=== PATIENT | male | born 1980 | race Caucasian/White ===

== ENCOUNTER 2018-08-27 19:29 | Emergency (ER) | payer BC, OTHER ==
--- NOTE | 2018-08-27 19:50 | ER Document Report ---
ED Medical Screen (RME) - General Chief Complaint: Chest Congestion Stated Complaint: COUGHING,RUNNY NOSE Time Seen by Provider: 08/27/18 19:40 Notes: 38-year-old male to the emergency department for evaluation of cough, shortness of breath and chest pain. Patient states he generally feels completely wiped out. States that he was diagnosed at his primary care doctor with a early pneumonia and was started on 750 mg of Levaquin which she completed a whole course of the. After finishing the last dose of the Levaquin the symptoms came back. Also complaining of some pain in the left lower quadrant. I have greeted and performed a rapid initial assessment of this patient. A comprehensive ED assessment and evaluation of the patient, analysis of test results and completion of the medical decision making process will be conducted by additional ED providers. TRAVEL OUTSIDE OF THE [place] IN LAST 30 DAYS: No - Related Data Allergies/Adverse Reactions: No Known Allergies Allergy (Verified 03/04/16 14:25) Past Medical History - Social History Chew tobacco use (# tins/day): No Frequency of alcohol use: None Drug Abuse: Bath salts - Past Medical History Cardiac Medical History: Reports: Hx Hypertension Denies: Hx Coronary Artery Disease, Hx Heart Attack Pulmonary Medical History: Denies: Hx Asthma, Hx Bronchitis, Hx COPD, Hx Pneumonia Neurological Medical History: Denies: Hx Cerebrovascular Accident, Hx Seizures Renal/ Medical History: Denies: Hx Peritoneal Dialysis Musculoskeltal Medical History: Reports Hx Arthritis Past Surgical History: Reports: Hx Orthopedic Surgery - right hand surgery - Immunizations Hx Diphtheria, Pertussis, Tetanus Vaccination: Yes Review of Systems - Review of Systems Notes: Review of systems positive for the following: Shortness of breath, cough, chest pain, wheezing, malaise and left lower quadrant pain Physical Exam - Vital signs Vitals: Temp Pulse Resp BP Pulse Ox 98.2 F 77 20 148/81 H 94 08/27/18 19:34 08/27/18 19:34 08/27/18 19:34 08/27/18 19:34 08/27/18 19:34 Interpretation: Normal - Respiratory Respiratory status: No respiratory distress Chest status: Nontender Breath sounds: Nonproductive cough, Rhonchi, Wheezing Chest palpation: Normal - Cardiovascular Rhythm: Regular Heart sounds: Normal auscultation Murmur: No Course - Vital Signs Vital signs: Temp Pulse Resp BP Pulse Ox 98.2 F 77 20 148/81 H 94 08/27/18 19:34 08/27/18 19:34 08/27/18 19:34 08/27/18 19:34 08/27/18 19:34 Doctor's Discharge - Discharge Referrals: SABINA ZAPIEN MD [Primary Care Provider] - Follow up as needed
[2018-08-27] MEDS ORDERED: ALBUTEROL SULFATE 0.083% NEB 2.5 MG/3 ML AMPUL NEB ONE ×2 (19:51→21:54)
[2018-08-27 20:18] LABS: ABSOLUTE BASOPHILS # (AUTO) 0.1 10^3/uL (0.0-0.2); ABSOLUTE LYMPHOCYTES (AUTO) 2.3 10^3/uL (0.5-4.7); ABSOLUTE MONOCYTES (AUTO) 0.6 10^3/uL (0.1-1.4); ABSOLUTE NEUT (AUTO) 8.7 10^3/uL (1.7-8.2); BASOPHILS % (AUTO) 0.4 % (0-2); EOSINOPHILS % (AUTO) 0.3 % (0-6); HEMOGLOBIN 17.9 g/dL (13.5-17.0); LYMPHOCYTES % (AUTO) 19.8 % (13-45); MEAN CORPUSCULAR HEMOGLOBIN 29.7 pg (27.0-33.4); MEAN CORPUSCULAR HGB CONC 33.8 g/dL (32.0-36.0); MEAN CORPUSCULAR VOLUME 88 fl (80-97); MONOCYTES % (AUTO) 5.4 % (3-13); RED BLOOD COUNT 6.02 10^6/uL (4.35-5.55); RED CELL DISTRIBUTION WIDTH 14.1 % (11.5-14.0); SEGMENTED NEUTROPHILS % (AUTO) 74.1 % (42-78); TOTAL CELLS COUNTED % (AUTO) 100 %; WHITE BLOOD COUNT 11.7 10^3/uL (4.0-10.5)
--- NOTE | 2018-08-27 20:30 | RADIOLOGY REPORT (SQ) ---
EXAM DESCRIPTION: CHEST 2 VIEWS COMPLETED DATE/TIME: 08/27/2018 8:21 pm REASON FOR STUDY: cough COMPARISON: None. EXAM PARAMETERS: NUMBER OF VIEWS: two views TECHNIQUE: Digital Frontal and Lateral radiographic views of the chest acquired. RADIATION DOSE: NA LIMITATIONS: none FINDINGS: LUNGS AND PLEURA: No opacities, masses or pneumothorax. No pleural effusion. MEDIASTINUM AND HILAR STRUCTURES: No masses or contour abnormalities. HEART AND VASCULAR STRUCTURES: Heart normal size. No evidence for failure. BONES: No acute findings. HARDWARE: None in the chest. OTHER: No other significant finding. IMPRESSION: NO ACUTE RADIOGRAPHIC FINDING IN THE CHEST. TECHNICAL DOCUMENTATION: JOB ID: [id number] [employer]- All Rights Reserved Reading location - IP/workstation name: [email or web address]
[2018-08-27 20:33] LABS: ALANINE AMINOTRANSFERASE 49 U/L (21-72); ALBUMIN 4.3 g/dL (3.5-5.0); ALKALINE PHOSPHATASE 85 U/L (38-126); ANION GAP 10 (5-19); ASPARTATE AMINO TRANSFERASE 25 U/L (17-59); BILIRUBIN,DIRECT 0.4 mg/dL (0.0-0.4); BILIRUBIN,TOTAL 1.1 mg/dL (0.2-1.3); BLOOD UREA NITROGEN 11 mg/dL (7-20); CALCIUM 9.5 mg/dL (8.4-10.2); CARBON DIOXIDE 24 mmol/L (22-30); CHLORIDE 105 mmol/L (98-107); GLUCOSE 113 mg/dL (75-110); SODIUM 138.8 mmol/L (137-145); TOTAL PROTEIN 6.9 g/dL (6.3-8.2)
[2018-08-27 20:42] LABS: PLATELET COUNT 91 10^3/uL (150-450)
[2018-08-27] MEDS ORDERED: IPRATROPIUM/ALBUTEROL 0.5-2.5 MG/3 ML AMPUL NEB ONE (20:43)
[2018-08-27 20:45] LABS: NT PRO BNP 47 pg/mL (<125); TROPONIN I < 0.012 ng/mL
[2018-08-27 21:14] LABS: A TYPE INFLUENZA AG NEGATIVE (NEGATIVE); B INFLUENZA AG NEGATIVE (NEGATIVE)
[2018-08-27] MEDS ORDERED: PREDNISONE 20 MG TABLET PO ONE (21:54)
--- NOTE | 2018-08-27 21:55 | ER Document Report ---
ED Respiratory Problem - General Chief Complaint: Chest Congestion Stated Complaint: COUGHING,RUNNY NOSE Time Seen by Provider: 08/27/18 19:40 Mode of Arrival: Ambulatory Information source: Patient Notes: Patient presents complaining of persistent cough for the past 3-4 weeks. Patient reports cough has been productive and worse over the past few days. Patient denies any fever but does report occasional sweats and chills. Patient was recently on Levaquin and finish the antibiotic 4 days ago. Patient does smoke a pack of cigarettes a day. Patient denies any recent bedrest immobilizat ion or travel. No previous history of PE or DVT. Patient denies any history of asthma or COPD. Patient does complain of chest discomfort with coughing and left lower abdominal pain with cough or with lateral rotation of the trunk. Patient presently denies any chest discomfort or abdominal pain. Patient denies any nausea vomiting or diarrhea. TRAVEL OUTSIDE OF THE [place] IN LAST 30 DAYS: No - HPI Patient complains to provider of: Cough, Short of breath. No: Asthma, Chest pain Pain Level: Denies Context: Smoker. denies: Hx asthma, Hx COPD, Recent immobilization, Recent surgery At home treatment: Bronchodilators Associated symptoms: Chest pain/discomfort - With coughing, Congestion, Cough, Runny nose, Short of breath, Wheezing. 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 Lives with: Family Family History: Reviewed & Not Pertinent Patient has suicidal ideation: No Patient has homicidal ideation: No Pulmonary Medical History: Denies: Hx Asthma, Hx Bronchitis, Hx COPD, Hx Pneumonia Neurological Medical History: Denies: Hx Cerebrovascular Accident, Hx Seizures Renal/ Medical History: Denies: Hx Peritoneal Dialysis Musculoskeletal Medical History: Reports Hx Arthritis Psychiatric Medical History: Reports: Hx Anxiety, Hx Depression Past Surgical History: Reports: Hx Orthopedic Surgery - right hand surgery - Immunizations Hx Diphtheria, Pertussis, Tetanus Vaccination: Yes Review of Systems - Review of Systems Constitutional: Chills. denies: Fever EENT: Nose congestion, Nose discharge, Sinus pressure Cardiovascular: Chest pain - With coughing Respiratory: Cough, Short of breath, Wheezing Gastrointestinal: Abdominal pain - Movement and cough. denies: Diarrhea, Nausea, Vomiting Genitourinary: No symptoms reported. denies: Dysuria Male Genitourinary: No symptoms reported Musculoskeletal: No symptoms reported. denies: Back pain, Neck pain Skin: No symptoms reported Hematologic/Lymphatic: No symptoms reported Physical Exam - Vital signs Vitals: Temp Pulse Resp BP Pulse Ox 98.2 F 77 20 148/81 H 94 08/27/18 19:34 08/27/18 19:34 08/27/18 19:34 08/27/18 19:34 08/27/18 19:34 - General General appearance: Alert In distress: None - HEENT Head: Normocephalic, Atraumatic Eyes: Normal Conjunctiva: Normal Nasal: Swelling, Clear rhinorrhea Mouth/Lips: Normal Mucous membranes: Normal Pharynx: Erythema Neck: Normal, Supple. No: Lymphadenopathy - Respiratory Respiratory status: No respiratory distress Chest status: Pain with cough Breath sounds: Nonproductive cough, Wheezing Chest palpation: Normal. No: Tender - Cardiovascular Rhythm: Regular. No: Tachycardia Heart sounds: S1 appreciated, S2 appreciated - Abdominal Inspection: Morbidly Obese Distension: No distension Bowel sounds: Normal Tenderness: Nontender Organomegaly: No organomegaly - Back Back: Normal, Nontender. No: CVA tenderness - Extremities General upper extremity: Normal inspection, Normal strength General lower extremity: Normal inspection, Normal strength. No: Edema - Neurological Neuro grossly intact: Yes Cognition: Normal [place] Coma Scale Eye Opening: Spontaneous [place] Coma Scale Verbal: Oriented [place] Coma Scale Motor: Obeys Commands Nathan Coma Scale Total: 15 - Psychological Associated symptoms: Normal affect, Normal mood - Skin Skin Temperature: Warm Skin Moisture: Dry Skin Color: Normal Course - Re-evaluation Re-evalutation: 08/27/18 21:55 Patient continues with diffuse wheezing bilaterally. Additional nebulizer treatment ordered. Chest x-ray reviewed, no concern for pneumonia. Influenza test negative at this time. Patient denies any abdominal pain or chest pain at this time. Patient states he only has abdominal pain whenever he turns or coughs and states he only has chest pain with coughing. 08/27/18 22:36 Patient is requesting to be discharged at this time. Respirations even unlabo red. Patient does have continued scattered wheezing. Patient does have a nebulizer at home with medication for his nebulizer machine. Discussed with patient at length importance of smoking cessation. Patient encouraged to recheck with his primary doctor. Patient continues without any chest pain or abdominal pain at this time. Patient with a heart score of 1 for risk factors. Low probability with well's criteria, no concern for PE at this time. Suspect that abdominal and chest pain are chest and abdominal wall tenderness from coughing. - Vital Signs Vital signs: Temp Pulse Resp BP Pulse Ox 97.5 F 98 22 H 126/74 H 95 08/27/18 22:42 08/27/18 22:42 08/27/18 22:42 08/27/18 22:42 08/27/18 22:42 - Laboratory Result Diagrams: 08/27/18 20:00 08/27/18 20:00 Laboratory results interpreted by me: 08/27/18 08/27/18 20:00 20:00 WBC 11.7 H RBC 6.02 H Hgb 17.9 H Hct 53.0 H RDW 14.1 H Plt Count 91 L Absolute Neutrophils 8.7 H Glucose 113 H 08/27/18 21:55 Labs- Entire Visit 08/27/18 08/27/18 08/27/18 20:00 20:00 20:00 WBC 11.7 H RBC 6.02 H Hgb 17.9 H Hct 53.0 H MCV 88 MCH 29.7 MCHC 33.8 RDW 14.1 H Plt Count 91 L Seg Neutrophils % 74.1 Lymphocytes % 19.8 Monocytes % 5.4 Eosinophils % 0.3 Basophils % 0.4 Absolute Neutrophils 8.7 H Absolute Lymphocytes 2.3 Absolute Monocytes 0.6 Absolute Eosinophils 0.0 Absolute Basophils 0.1 Sodium 138.8 Potassium 4.0 Chloride 105 Carbon Dioxide 24 Anion Gap 10 BUN 11 Creatinine 0.81 Est GFR ( Amer) > 60 Est GFR (Non-Af Amer) > 60 Glucose 113 H Calcium 9.5 Total Bilirubin 1.1 Direct Bilirubin 0.4 Neonat Total Bilirubin Not Reportable Neonat Direct Bilirubin Not Reportable Neonat Indirect Bili Not Reportable AST 25 ALT 49 Alkaline Phosphatase 85 Troponin I < 0.012 NT-Pro-B Natriuret Pep 47 Total Protein 6.9 Albumin 4.3 Influenza A (Rapid) Influenza B (Rapid) 08/27/18 20:51 WBC RBC Hgb Hct MCV MCH MCHC RDW Plt Count Seg Neutrophils % Lymphocytes % Monocytes % Eosinophils % Basophils % Absolute Neutrophils Absolute Lymphocytes Absolute Monocytes Absolute Eosinophils Absolute Basophils Sodium Potassium Chloride Carbon Dioxide Anion Gap BUN Creatinine Est GFR ( Amer) Est GFR (Non-Af Amer) Glucose Calcium Total Bilirubin Direct Bilirubin Neonat Total Bilirubin Neonat Direct Bilirubin Neonat Indirect Bili AST ALT Alkaline Phosphatase Troponin I NT-Pro-B Natriuret Pep Total Protein Albumin Influenza A (Rapid) NEGATIVE Influenza B (Rapid) NEGATIVE - Diagnostic Test Radiology reviewed: Image reviewed, Reports reviewed Discharge - Discharge Clinical Impression: Bronchitis, Wheezing, Pleuritic chest pain Condition: Stable Disposition: HOME, SELF-CARE Instructions: Bronchitis With Bronchospasm (Wheezing) ([facility]), Inhaled Bronchodilators ([facility]), Steroid Medication Additional Instructions: Return immediately for any new or worsening symptoms Followup with your primary care provider, call tomorrow to make a followup appointment Prescriptions: Dextromethorphan Polistirex [Delsym] 60 mg PO Q12 PRN #120 ml PRN Reason: Prednisone [Deltasone 20 mg Tablet] 3 tab PO DAILY 5 Days tablet Forms: Smoking Cessation Education, Return to Work Referrals: SABINA ZAPIEN MD [Primary Care Provider] - Follow up tomorrow
[2018-08-27 22:47] VITALS: BP 126/74
--- NOTE | 2018-08-27 23:46 | EKG REPORT ---
SEVERITY:- BORDERLINE ECG - SINUS RHYTHM BORDERLINE R WAVE PROGRESSION, ANTERIOR LEADS : Confirmed by: Sam Booker 27-Aug-2018 23:46:15
== END 2018-08-27 22:53 | disposition home or self-care (01) ==
LOC: ER 19:29
DX: J40 Bronchitis, not specified as acute or chronic (principal); R06.2 Wheezing; R07.81 Pleurodynia; E66.01 Morbid (severe) obesity due to excess calories; F17.200 Nicotine dependence, unspecified, uncomplicated
CPT/HCPCS: 93005; 94640 ×2; 99284; 36415; 85025; 80053; 84484; 87804; 83880; 71046; 93010; J7512; J7620

== ENCOUNTER 2019-08-29 15:47 | Emergency (ER) | payer OTHER ==
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
[2019-08-29 16:57] LABS: ABSOLUTE EOSINOPHILS # (AUTO) 0.1 10^3/uL (0.0-0.6); ABSOLUTE LYMPHOCYTES (AUTO) 2.3 10^3/uL (0.5-4.7); ABSOLUTE MONOCYTES (AUTO) 0.6 10^3/uL (0.1-1.4); ABSOLUTE NEUT (AUTO) 5.7 10^3/uL (1.7-8.2); BASOPHILS % (AUTO) 0.2 % (0-2); EOSINOPHILS % (AUTO) 1.6 % (0-6); HEMATOCRIT 45.1 % (37.9-51.0); HEMOGLOBIN 15.2 g/dL (13.5-17.0); LYMPHOCYTES % (AUTO) 25.9 % (13-45); MEAN CORPUSCULAR HEMOGLOBIN 29.1 pg (27.0-33.4); MEAN CORPUSCULAR HGB CONC 33.8 g/dL (32.0-36.0); MEAN CORPUSCULAR VOLUME 86 fl (80-97); MONOCYTES % (AUTO) 7.1 % (3-13); PLATELET COUNT 116 10^3/uL (150-450); RED BLOOD COUNT 5.24 10^6/uL (4.35-5.55); RED CELL DISTRIBUTION WIDTH 13.8 % (11.5-14.0); SEGMENTED NEUTROPHILS % (AUTO) 65.2 % (42-78); TOTAL CELLS COUNTED % (AUTO) 100 %; WHITE BLOOD COUNT 8.7 10^3/uL (4.0-10.5)
[2019-08-29 17:03] LABS: APPEARANCE,URINE CLEAR; BILIRUBIN,URINE NEGATIVE (NEGATIVE); COLOR,URINE YELLOW; GLUCOSE, URINE NEGATIVE (NEGATIVE); KETONES,URINE NEGATIVE (NEGATIVE); PROTEIN,URINE NEGATIVE (NEGATIVE); URINE SPECIFIC GRAVITY 1.056; UROBILINOGEN,URINE NEGATIVE mg/dL (<2.0)
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
[2019-08-29 17:29] LABS: ALKALINE PHOSPHATASE 65 U/L (38-126); ANION GAP 9 (5-19); ASPARTATE AMINO TRANSFERASE 26 U/L (17-59); BILIRUBIN,DIRECT 0.2 mg/dL (0.0-0.4); BILIRUBIN,TOTAL 0.6 mg/dL (0.2-1.3); BLOOD UREA NITROGEN 14 mg/dL (7-20); CALCIUM 8.7 mg/dL (8.4-10.2); CARBON DIOXIDE 24 mmol/L (22-30); CHLORIDE 107 mmol/L (98-107); GLUCOSE 111 mg/dL (75-110); POTASSIUM 4.6 mmol/L (3.6-5.0); TOTAL PROTEIN 6.8 g/dL (6.3-8.2)
[2019-08-29 19:56] VITALS: BP 134/79
== END 2019-08-29 19:06 | disposition home or self-care (01) ==
LOC: ER 15:47
DX: S39.91XA Unspecified injury of abdomen, initial encounter (principal); S39.012A Strain of muscle, fascia and tendon of lower back, initial encounter; M54.2 Cervicalgia; X58.XXXA Exposure to other specified factors, initial encounter; I10 Essential (primary) hypertension
CPT/HCPCS: 36415; 74177; 80053; 81001; 85025; 99284

== ENCOUNTER 2020-08-24 11:57 | Emergency (ER) | payer OTHER ==
[2020-08-24] MEDS ORDERED: IPRATROPIUM/ALBUTEROL 0.5-2.5 MG/3 ML AMPUL NEB ONE (13:18)
--- NOTE | 2020-08-24 13:20 | ER Document Report ---
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 Took Tylenol with minimal relief. Was prescribed steroids and nebulizers earlier this week but has not taken them for today. He denies any chest pain, no nausea, no vomiting. states she has been monitoring his oxygen levels at home and it was at 90% this morning. PE: Alert and oriented x3. Lungs diminished without rales, rhonchi, or wheezes. Heart: Regular rate rhythm without murmurs, rubs, gallops. I have greeted and performed a rapid initial assessment of this patient. A comprehensive ED assessment and evaluation of the patient, analysis of test results and completion of the medical decision making process will be conducted by additional ED providers. I have specifically instructed the patient or family members with the patient to immediately return to any nursing staff should anything change in the patient's condition or with their chief complaint. TRAVEL OUTSIDE OF THE [place] IN LAST 30 DAYS: No - Related Data Allergies/Adverse Reactions: No Known Allergies Allergy (Verified 08/29/19 15:57) Past Medical History - Past Medical History Cardiac Medical History: Reports: Hx Hypertension Denies: Hx Coronary Artery Disease, Hx Heart Attack Pulmonary Medical History: Denies: Hx Asthma, Hx Bronchitis, Hx COPD, Hx Pneumonia Neurological Medical History: Denies: Hx Cerebrovascular Accident, Hx Seizures Renal/ Medical History: Denies: Hx Peritoneal Dialysis Musculoskeltal Medical History: Reports Hx Arthritis Psychiatric Medical History: Reports: Hx Anxiety, Hx Depression Past Surgical History: Reports: Hx Abdominal Surgery - umbilical hernia repair, Hx Orthopedic Surgery - right hand surgery - Immunizations Hx Diphtheria, Pertussis, Tetanus Vaccination: Yes Physical Exam - Vital signs Vitals: Temp Pulse Resp BP Pulse Ox 98.5 F 90 28 H 127/65 H 92 08/24/20 12:09 08/24/20 12:08/24/20 12:08/24/20 12:09 08/24/20 12:09 Course - Vital Signs Vital signs: Temp Pulse Resp BP Pulse Ox 98.5 F 90 28 H 127/65 H 92 08/24/20 12:09 08/24/20 12:09 08/24/20 12:09 08/24/20 12:09 08/24/20 12:09 Doctor's Discharge - Discharge Referrals: KATHARINA HYLTON PA-C [Primary Care Provider] - Follow up as needed
--- NOTE | 2020-08-24 15:04 | RADIOLOGY REPORT (SQ) ---
EXAM DESCRIPTION: CHEST SINGLE VIEW IMAGES COMPLETED DATE/TIME: 08/24/2020 1:45 pm REASON FOR STUDY: dyspnea COMPARISON: 03/05/2016 EXAM PARAMETERS: NUMBER OF VIEWS: One view. TECHNIQUE: Single frontal radiographic view of the chest acquired. RADIATION DOSE: NA LIMITATIONS: None. FINDINGS: LUNGS AND PLEURA: Ill-defined patchy peripheral opacities in both lungs, possibly infectio us/ inflammatory process. MEDIASTINUM AND HILAR STRUCTURES: No masses. Contour normal. HEART AND VASCULAR STRUCTURES: Heart normal in size. Normal vasculature. BONES: No acute findings. HARDWARE: None in the chest. OTHER: No other significant finding. IMPRESSION: Ill-defined patchy peripheral opacities in both lungs may represent infectious/ inflamma tory process. TECHNICAL DOCUMENTATION: JOB ID: [id number] 2010 [employer]- All Rights Reserved Reading location - IP/workstation name: [email or web address]
[2020-08-24] MEDS ORDERED: RINGERS SOLUTION,LACTATED 1,000 ML IV ONE (15:38)
[2020-08-24] MEDS ORDERED: RINGERS SOLUTION,LACTATED 1,000 ML IV PRN (15:58)
[2020-08-24 15:59] LABS: ALBUMIN 3.4 g/dL (3.5-5.0); ALKALINE PHOSPHATASE 64 U/L (38-126); ASPARTATE AMINO TRANSFERASE 48 U/L (17-59); BILIRUBIN,DIRECT 0.1 mg/dL (0.0-0.4); BILIRUBIN,TOTAL 0.4 mg/dL (0.2-1.3); BLOOD UREA NITROGEN 12 mg/dL (7-20); CHLORIDE 105 mmol/L (98-107); GLUCOSE 86 mg/dL (75-110); POTASSIUM 3.6 mmol/L (3.6-5.0); TOTAL PROTEIN 6.1 g/dL (6.3-8.2)
[2020-08-24 16:05] LABS: ABSOLUTE LYMPHOCYTES (AUTO) 1.3 10^3/uL (0.5-4.7); ABSOLUTE MONOCYTES (AUTO) 0.3 10^3/uL (0.1-1.4); ABSOLUTE NEUT (AUTO) 2.8 10^3/uL (1.7-8.2); HEMATOCRIT 39.7 % (37.9-51.0); HEMOGLOBIN 13.5 g/dL (13.5-17.0); LYMPHOCYTES % (AUTO) 29.7 % (13-45); MEAN CORPUSCULAR HEMOGLOBIN 28.7 pg (27.0-33.4); MEAN CORPUSCULAR HGB CONC 33.9 g/dL (32.0-36.0); MEAN CORPUSCULAR VOLUME 85 fl (80-97); RED BLOOD COUNT 4.69 10^6/uL (4.35-5.55); RED CELL DISTRIBUTION WIDTH 13.8 % (11.5-14.0); SEGMENTED NEUTROPHILS % (AUTO) 64.3 % (42-78); TOTAL CELLS COUNTED % (AUTO) 100 %; WHITE BLOOD COUNT 4.4 10^3/uL (4.0-10.5)
[2020-08-24 16:08] LABS: CARBON DIOXIDE 27 mmol/L (22-30)
[2020-08-24 16:10] LABS: ANION GAP 6 (5-19)
[2020-08-24 16:22] LABS: PLATELET COUNT 58 10^3/uL (150-450)
[2020-08-24 18:01] VITALS: BP 122/72
--- NOTE | 2020-08-24 18:06 | ER Document Report ---
ED Respiratory Problem - General Chief Complaint: Shortness Of Breath Stated Complaint: SHORT OF BREATH,COUGH,CONGESTION Time Seen by Provider: 08/24/20 13:11 Primary Care Provider: KATHARINA HYLTON PA-C [Primary Care Provider] - Follow up as needed Mode of Arrival: Wheelchair Information source: Patient Notes: Patient is a 40-year-old male comes emergency room stating that he was tested for the coronavirus on 18 August and he received word on Ras clemente and lois t he was positive. Prior to him receiving the positive diagnosis the primary care provider theses placed him on steroids and inhaler and nebulizer. Patient states it helped slightly to start with but is progressively gotten worse. He does state that this morning he had a fever of 101.7. He does state that he was taking his saturation at home and it dropped below 92% and when he contacted the video chat doctor at that time they informed him he needed to come to ER to be evaluated. Patient does have a history of bronchitis. He also used to smoke stopped approximately 1 year ago. 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 He denies any other major medical problems. TRAVEL OUTSIDE OF THE [place] IN LAST 30 DAYS: No - HPI Patient complains to provider of: Cough, Short of breath Onset: Last week Duration: Continuous, Worse/persistent Quality of pain: Achy Severity: Moderate Pain Level: 3 Chest pain/discomfort: Intermittent, Worse with deep breaths Cough: Productive Sputum amount: Small Sputum color: Yellow Sputum consistency: Mucoid Plug At home treatment: Bronchodilators, Oral steroids Associated symptoms: Chills, Congestion, Cough, Short of breath Similar symptoms previously: Yes Recently seen / treated by doctor: Yes - Related Data Allergies/Adverse Reactions: No Known Allergies Allergy (Verified 08/24/20 16:40) Home Medications: lyrica, wellbutrin, singulair, vit D, oxycodone Past Medical History - General Information source: Patient, Relative - Social History Smoking Status: Former Smoker Cigarette use (# per day): No Chew tobacco use (# tins/day): No Smoking Education Provided: No Frequency of alcohol use: Social Drug Abuse: None Lives with: Family Family History: Reviewed & Not Pertinent Patient has homicidal ideation: No - Past Medical History Cardiac Medical History: Reports: Hx Hypertension Denies: Hx Coronary Artery Disease, Hx Heart Attack Pulmonary Medical History: Reports: Hx Pneumonia Denies: Hx Asthma, Hx Bronchitis, Hx COPD Neurological Medical History: Denies: Hx Cerebrovascular Accident, Hx Seizures Renal/ Medical History: Denies: Hx Peritoneal Dialysis Musculoskeletal Medical History: Reports Hx Arthritis Psychiatric Medical History: Reports: Hx Anxiety, Hx Depression Past Surgical History: Reports: Hx Abdominal Surgery - umbilical hernia repair, Hx Orthopedic Surgery - right hand surgery - Immunizations Hx Diphtheria, Pertussis, Tetanus Vaccination: Yes Review of Systems - Review of Systems Constitutional: Fever EENT: See HPI, Nose congestion, Sinus pressure Cardiovascular: No symptoms reported Respiratory: See HPI, Short of breath, Wheezing Gastrointestinal: No symptoms reported Genitourinary: No symptoms reported Male Genitourinary: No symptoms reported Musculoskeletal: No symptoms reported Skin: No symptoms reported Hematologic/Lymphatic: No symptoms reported Neurological/Psychological: No symptoms reported Physical Exam - Vital signs Vitals: Temp Pulse Resp BP Pulse Ox 98.5 F 90 28 H 127/65 H 92 08/24/20 12:09 08/24/20 12:09 08/24/20 12:09 08/24/20 12:09 08/24/20 12:09 Interpretation: Hypotensive, Tachycardic, Hypoxic - Notes Notes: PHYSICAL EXAMINATION: GENERAL: Well-appearing, well-nourished and in no acute distress. HEAD: Atraumatic, normocephalic. EYES: Pupils equal round and reactive to light, extraocular movements intact, sclera anicteric, conjunctiva are normal. ENT: Examination patient's head and upper airway show nasal mucosa be mildly erythematous and edematous with some rhinorrhea noted. Patient also has bilateral nasal congestion. Posterior pharynx shows moderate amount of erythema no exudate noted uvula is midline no erythema no deformities no encroachment. NECK: Normal range of motion, supple without lymphadenopathy LUNGS: Auscultation patient's lungs show bilateral breath sounds breath sound increased throughout no rhonchi rales are heard at this time but there is a slight inspiratory expiratory wheeze. HEART: Regular rate and rhythm without murmurs ABDOMEN: Soft, nontender, nondistended abdomen. No guarding, no rebound. No masses appreciated. Musculoskeletal: Normal range of motion, no pitting or edema. No cyanosis. NEUROLOGICAL: Cranial nerves grossly intact. Normal speech, normal gait. Normal sensory, motor exams PSYCH: Normal mood, normal affect. SKIN: Warm, Dry, normal turgor, no rashes or lesions noted. Course - Re-evaluation Re-evalutation: 08/24/20 19:52 We ambulated patient and he did not drop sats below 94%. Patient was starting to be concerning along with a blood pressure 80/49 when he first got here but with a little fluid he received that he became more normotensive and he felt much better. I offered patient the option of being possibly admitted and run it by the hospitalist patient felt that this point time he is feeling so much better that he wanted to try outpatient therapy. He still has the nebulized treatments at home he still has the steroids he is on for another week and he understands that if he should get more short of breath he will return to ER he will monitor also his blood pressure. He does state that he did not drink a lot of fluids over the past several days. Patient here was not febrile in the he also was not tachycardic throughout the entire stay. I did feel it was reasonable to have patient go home as an outpatient for reevaluation. I did put him on some Zithromax and some famotidine. Zithromax because he was diagnosed with bronchitis by the primary care provider but did not put him on any antibiotic given that this may be a Covid presentation with possibly underlying bacterial infection I felt it was worth putting you on this. The patient's pulse ox showed 92 The saturation out in triage noted that patient saturation never dropped below 94. 08/24/20 19:55 - Vital Signs Vital signs: Temp Pulse Resp BP Pulse Ox 98.2 F 90 15 122/72 96 08/24/20 16:31 08/24/20 12:09 08/24/20 17:31 08/24/20 17:31 08/24/20 17:31 - Laboratory Results Result Diagrams: 08/24/20 15:33 08/24/20 15:14 Laboratory Results Interpreted: 08/24/20 08/24/20 15:14 15:33 Plt Count 58 L Calcium 8.0 L Total Protein 6.1 L Albumin 3.4 L Critical Laboratory Results Reviewed: No Critical Results - Radiology Results Critical Radiology Results Reviewed: Yes Attending or Supervising Physician who Reviewed Radiology: LORENA MURDOCK - EKG Interpretation by Me EKG shows normal: Sinus rhythm Rate: Normal Rhythm: NSR When compared to previous EKG there are: No significant change Additional EKG results interpreted by me: 08/24/20 19:54 ER attending and myself Discharge - Discharge Clinical Impression: Lab test positive for detection of COVID-19 virus, Bronchitis Hypotension Qualifiers: Hypotension type: unspecified hypotension type Qualified Code(s): I95.9 - Hypotension, unspecified Condition: Stable Disposition: HOME, SELF-CARE Instructions: Bronchitis ([facility]), Hypotension ([facility]) Additional Instructions: Home and rest. Continue current medications as prescribed the steroids and the MDI and the nebulizer. Also placing you on a Z-Praveen since you are failing outpatient therapy your chest x-ray does show the most likely presentation of Covid. I am putting you on a Z-Praveen because of your history of bronchitis and possibly an underlying bacterial infection has just not materialized yet as we have discussed the need to keep your fluids going since you had a good response to the fluids we gave you here. If you should get worse increasing shortness of breath or any concerns at all you return to ER for rehab evaluation and possible admission. Prescriptions: Famotidine [Acid Controller] 20 mg PO BID #20 tablet Azithromycin [Zithromax 250 mg Tablet] 250 mg PO ASDIR PRN #6 tablet PRN Reason: Referrals: KATHARINA HYLTON PA-C [Primary Care Provider] - Follow up as needed
== END 2020-08-24 18:32 | disposition home or self-care (01) ==
LOC: ER 11:57
DX: U07.1 COVID-19 (principal); J40 Bronchitis, not specified as acute or chronic; I95.9 Hypotension, unspecified; R06.02 Shortness of breath; R05 Cough; R09.81 Nasal congestion; R50.9 Fever, unspecified; Z87.891 Personal history of nicotine dependence; Z79.899 Other long term (current) drug therapy; I10 Essential (primary) hypertension
CPT/HCPCS: 94640; 99284; 96360; 96361; 36415; 85025; 80053; 71045; J7120